=== PATIENT | female | born 1955 | race Caucasian/White ===

== ENCOUNTER 2017-09-25 06:15 | Day surgery (SDC) | payer OTHER ==
[2017-09-25] MEDS ORDERED: ERYTHROMYCIN OPHTH OINT As Ordered (06:21)
[2017-09-25] MEDS ORDERED: LIDOCAINE 1% MDV 20ML VIAL SQ (06:30)
[2017-09-25] MEDS ORDERED: LR 1,000 ML IV (06:30)
[2017-09-25] MEDS ORDERED: fentaNYL 100 MCG/2 ML INJECTION (J3010) As Ordered ×2 (06:56→07:59)
[2017-09-25] MEDS ORDERED: MIDAZOLAM INJ 2 MG/2 ML VIAL (J2250) As Ordered (06:56)
[2017-09-25] MEDS ORDERED: ROCURONIUM BROMIDE 50 MG/5 ML VIAL As Ordered (06:58)
[2017-09-25] MEDS ORDERED: PROPOFOL 200 MG/20 ML VIAL As Ordered ×3 (06:59→07:28)
[2017-09-25] MEDS ORDERED: LIDOCAINE 2% INJ 100 MG/5 ML SDV (FOR ANES.) As Ordered (06:59)
[2017-09-25] MEDS: LIDOCAINE 3.5 % 1ML OPHTH TOPICAL GEL OU (07:14)
[2017-09-25] MEDS ORDERED: dexameTHASONE 4 MG/ML 1ML VIAL (J1100) As Ordered (07:42)
[2017-09-25] MEDS ORDERED: ONDANSETRON 4MG/2ML VIAL (J2405) As Ordered (07:42)
[2017-09-25] MEDS: POVIDONE-IODINE 5% OPHTH PREP SOL 30ML As Ordered (08:07)
[2017-09-25] MEDS: LIDOCAINE 2% W/EPIN INJ 20ML **PRES FREE As Ordered (08:07)
[2017-09-25] MEDS: TETRACAINE 0.5% OPHTH SOLN 4ML As Ordered (08:07)
== END 2017-09-25 09:28 | disposition home or self-care (01) ==
LOC: M SDC 06:15
DX: H02.834 Dermatochalasis of left upper eyelid (principal); H02.831 Dermatochalasis of right upper eyelid; I10 Essential (primary) hypertension; M54.2 Cervicalgia; J45.30 Mild persistent asthma, uncomplicated; K21.9 Gastro-esophageal reflux disease without esophagitis; K57.32 Diverticulitis of large intestine without perforation or abscess without bleeding; M12.9 Arthropathy, unspecified; G90.50 Complex regional pain syndrome I, unspecified; J44.9 Chronic obstructive pulmonary disease, unspecified; F12.90 Cannabis use, unspecified, uncomplicated; J00 Acute nasopharyngitis [common cold]; Z88.0 Allergy status to penicillin; Z88.8 Allergy status to other drugs, medicaments and biological substances; Z79.899 Other long term (current) drug therapy; Z86.73 Personal history of transient ischemic attack (TIA), and cerebral infarction without residual deficits; Z78.0 Asymptomatic menopausal state; Z98.51 Tubal ligation status; Z85.44 Personal history of malignant neoplasm of other female genital organs; Z72.0 Tobacco use
CPT/HCPCS: 15823